=== PATIENT | female | born 1965 | race Caucasian/White ===

== ENCOUNTER 2021-12-27 21:34 | Emergency (ER) | payer OTHER, SELFPAY ==
[2021-12-27 21:39] VITALS: BP 104/62; PULSE 61; RESP 16; TEMP 36.9; O2SAT 100; BMI 20.9
[2021-12-27 21:44] VITALS: RESP 16
[2021-12-27 21:45] VITALS: BP 130/84; PULSE 69; O2SAT 98
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
[2021-12-27 23:09] VITALS: BP 131/62; PULSE 65; RESP 18; O2SAT 99
== END 2021-12-27 23:15 | disposition home or self-care (01) ==
PROVIDERS: Emergency Provider Student in an Organized Health Care Education/Training Program; PCP Internal Medicine
DX: S00.202A Unspecified superficial injury of left eyelid and periocular area, initial encounter (principal); H57.12 Ocular pain, left eye; X30.XXXA Exposure to excessive natural heat, initial encounter; Y93.9 Activity, unspecified; Y92.9 Unspecified place or not applicable; Y99.0 Civilian activity done for income or pay
CPT/HCPCS: 99283; 99284